=== PATIENT | female | born 1970 | race Asian ===

== ENCOUNTER → 2020-03-25 07:54 | Outpatient (CLI) | payer BC, SELFPAY ==
--- NOTE | ~2020-03-25 | MM_ITS ---
EXAMINATION: MM diagnostic leroy RT w horace HISTORY: Six-month follow-up for probably benign right breast calcifications TECHNIQUE: Craniocaudal, mediolateral, and mediolateral oblique 3-D tomosynthesis images of the right breast were performed and synthetic 2-D images were generated. Magnification views are also obtained . CAD analysis was submitted and interpreted. COMPARISON: 08/23/2019, 08/16/2019 BREAST PARENCHYMAL COMPOSITION: The breasts are extremely dense, which lowers the sensitivity of mamm ography. FINDINGS: There are stable grouped calcifications in the posterior third of the breast in line with t he nipple axis approximately 8 cm from the nipple. These again appear to be punctate and round in mor phology. There has been no suspicious interval change. No mass or architectural distortion is identif ied. IMPRESSION: 1. Stable, probably benign right breast calcifications. 2. Recommend 6 month follow-up right diagnostic mammogram. BI-RADS category 3, probably benign findings. Reviewed, dictated and finalized at location A.
== END ==
PROVIDERS: PCP Family Medicine; Visit Provider Family Medicine
DX: R92.8 Other abnormal and inconclusive findings on diagnostic imaging of breast (principal)
CPT/HCPCS: 77061; 77065; G0279